=== PATIENT | male | born 1995 | race Two or more races ===

== ENCOUNTER 2024-04-23 15:12 | Outpatient (CLI) | payer MEDICAID | END 2024-04-23 23:59 | disposition critical access hospital (66) | LOC: EMS 15:12 | DX: S09.93XA Unspecified injury of face, initial encounter (principal); M79.621 Pain in right upper arm; R07.89 Other chest pain; M79.605 Pain in left leg; R42 Dizziness and giddiness; Y04.2XXA Assault by strike against or bumped into by another person, initial encounter | CPT/HCPCS: A0425; A0429; A0999 ==

== ENCOUNTER 2024-04-23 15:32 | Emergency (ER) | payer MEDICAID ==
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
--- NOTE | 2024-04-23 16:37 | CT Report ---
PROCEDURE: Head WO INDICATIONS: head inj TECHNIQUE: Noncontrast 4.5 mm thick angled axial sections acquired from the foramen magnum to the vertex. For r adiation dose reduction, the following was used: automated exposure control, adjustment of mA and/or kV according to patient size. COMPARISON: None. FINDINGS: Image quality: Excellent. CSF spaces: Basal cisterns are patent. No extra-axial fluid collections. Ventricles are normal in size and shape. Brain: No midline shift. No intracranial masses or hemorrhage. Castrejon-white matter interface is norm al. Skull and face: Calvarium and visualized facial bones are intact, without suspicious lesions. Sinuses: Patchy chronic bilateral ethmoid disease. IMPRESSION: No acute intracranial pathology. Reviewed by: Greg Oliver MD on 04/23/2024 4:36 PM PDT Approved by: Greg Oliver MD on 04/23/2024 4:36 PM PDT Station ID: [id number]
--- NOTE | 2024-04-23 16:40 | CT Report ---
PROCEDURE: Cervical Spine WO INDICATIONS: head inj TECHNIQUE: Noncontrast 3 mm thick sections acquired from the skull base to the T4 level. Sagittal and coronal r eformats were then constructed. For radiation dose reduction, the following was used: automated exp osure control, adjustment of mA and/or kV according to patient size. COMPARISON: CT head without contrast from the same date. FINDINGS: Image quality: Excellent. Bones: No fractures or dislocations. Visualized superior ribs are intact. Soft tissues: Prevertebral soft tissues are normal in thickness. No paravertebral hematomas. No ap ical pneumothoraces. IMPRESSION: Unremarkable cervical spine CT. No acute cervical fracture or dislocation. Reviewed by: Greg Oliver MD on 04/23/2024 4:39 PM PDT Approved by: Greg Oliver MD on 04/23/2024 4:39 PM PDT Station ID: [id number]
--- NOTE | 2024-04-23 16:42 | CT Report ---
PROCEDURE: Maxillofacial WO INDICATIONS: L face inj TECHNIQUE: Noncontrast 1.5 mm thick axial images acquired from the mandible through the frontal sinuses, with co nathanael and sagittal reformatting. For radiation dose reduction, the following was used: automated ex posure control, adjustment of mA and/or kV according to patient size. COMPARISON: None. FINDINGS: Image quality: Excellent. Bones and teeth: Orbital mendoza are intact. Sinus mendoza show no fracture or deformity. Nasal bones and septum are intact. Visualized portions of the mandible demonstrate no fractures or subluxation. Zygomatic arches are intact. Pterygoid plates are intact. Visualized portions of the skull base an d auditory canals are intact. Sinuses: Patchy bilateral chronic ethmoid disease. Bilateral maxillary sinus mucosal thickening. Mild bilateral frontal sinus disease. Mastoid air cells are aerated. Soft tissues: No edema, masses, or fluid collections. No enlarged lymph nodes. No soft tissue lace rations or debris. Vascular: Visualized vascular structures appear normal in the absence of contrast. Bony vascular fo ramina and canals are intact. IMPRESSION: 1. No acute facial bone fracture or mandibular fracture noted. 2. Chronic sinus disease. Reviewed by: Greg Oliver MD on 04/23/2024 4:41 PM PDT Approved by: Greg Oliver MD on 04/23/2024 4:41 PM PDT Station ID: [id number]
[2024-04-23 17:39] LABS: ALBUMIN 4.5 g/dL (3.2-5.5); ALBUMIN/GLOBULIN RATIO 2.5 (1.0-2.2); ALKALINE PHOSPHATASE 54 IU/L (42-121); ALT ALANINE AMINOTRANSFERASE 41 IU/L (10-60); AST ASPARTATE AMINOTRANSFERASE 22 IU/L (10-42); BILIRUBIN,TOTAL 0.4 mg/dL (0.2-1.0); BUN - BLOOD UREA NITROGEN 9 mg/dL (6-20); CALCIUM 9.5 mg/dL (8.5-10.3); CARBON DIOXIDE - CO2 28 mmol/L (21-32); CHLORIDE 104 mmol/L (101-111); CREATININE 1.1 mg/dL (0.6-1.3); ETOH - ETHANOL < 10.0 mg/dL; GFR - MDRD 80 (>89); GLUCOSE 105 mg/dL (74-104); SODIUM 138 mmol/L (135-145); TOTAL PROTEIN 6.3 g/dL (6.4-8.9)
[2024-04-23 17:45] VITALS: BP 128/82; O2SAT 98
== END 2024-04-23 17:52 | disposition home or self-care (01) ==
LOC: EDBD → ED 15:32
DX: S00.83XA Contusion of other part of head, initial encounter (principal); S20.219A Contusion of unspecified front wall of thorax, initial encounter; Y04.2XXA Assault by strike against or bumped into by another person, initial encounter
CPT/HCPCS: 36415; 80053; 82077; 99283; 99284

== ENCOUNTER 2024-04-23 19:57 | Outpatient (CLI) | payer MEDICAID | END 2024-04-23 23:59 | disposition left against medical advice (07) | LOC: EMS 19:57 | DX: R55 Syncope and collapse (principal); R42 Dizziness and giddiness; R11.0 Nausea ==